=== PATIENT | male | born 1995 | race African-American/Black ===

== ENCOUNTER 2019-11-10 23:27 | Emergency (ER) | payer OTHER ==
[~2019-11-10] VITALS: Ht 188 cm; Wt 81.6 kg
[2019-11-10 23:35] VITALS: BP 145/88
--- NOTE | 2019-11-10 23:35 | NUR ---
ED Nurse Note: PT BROUGHT IN BY [facility] 67 WITH [employer] C/O TAZER IN LT UPPER CHEST. PT IS IN POLICE CUSTODY. VSS, NAD. [employer] AND [employer] AT BEDSIDE.
--- NOTE | 2019-11-10 23:38 | NUR ---
ED Nurse Note: TAZER REMOVED BY ERMD. APPLIED BANDAGE TO THE PUNCTURE WOUND.
--- NOTE | 2019-11-10 23:39 | Emergency Room Report ---
History of Present Illness General Chief Complaint: Medical Clearance Source: EMS, Law Enforcement Present Illness HPI This a 24-year-old male brought in by EMS with police escort for medical clearance. Patient had a parole violation and was being arrested. He resisted arrest and in the process was tased. He was brought in with a taser to the left upper chest area. No other complaint. Patient is not cooperative. Allergies: Uncoded Allergies: APPLES (Allergy, Unknown, 11/10/19) COVID-19 Screening Contact w/high risk pt: No Recent Travel to affected area: No Experienced COVID-19 symptoms?: No Patient History Past Medical History: see triage record, old chart reviewed Past Surgical History: none Pertinent Family History: none Social History: Reports: smoking Immunizations: other Reviewed Nursing Documentation: PMH: Agreed; PSxH: Agreed Review of Systems Eye: Denies: eye pain, blurred vision ENT: Denies: ear pain, nose congestion, throat swelling Respiratory: Denies: cough, shortness of breath Cardiovascular: Denies: chest pain, palpitations Gastrointestinal: Denies: abdominal pain, diarrhea, nausea, vomiting Musculoskeletal: Denies: back pain, joint pain Skin: Denies: rash Neurological: Denies: headache, numbness Endocrine: Denies: increased thirst, increased urine Hematologic/Lymphatic: Denies: easy bruising All Other Systems: negative except mentioned in HPI Physical Exam Vital Signs Date Time Temp Pulse Resp B/P (MAP) Pulse Ox O2 Delivery O2 Flow Rate FiO2 11/10/19 23:31 97.5 130 18 170/86 (114) 98 Room Air Vitals with tachycardia Sp02 EP Interpretation: reviewed, normal General Appearance: well appearing, no apparent distress, alert Head: normocephalic, atraumatic Eyes: bilateral eye PERRL, bilateral eye EOMI ENT: hearing grossly normal, normal pharynx Neck: full range of motion, supple, no meningismus Respiratory: chest non-tender, lungs clear, normal breath sounds, other - Left upper chest mildly deltoid area, there is a taser embedded. Cardiovascular #1: regular rate, rhythm, no murmur Gastrointestinal: normal bowel sounds, non tender, no mass, no organomegaly, no bruit, non-distended Musculoskeletal: back normal, normal range of motion, gait/station normal Psychiatric: mood/affect normal Procedures Additional Procedure Procedure Narrative Procedure: Foreign body removal indication: Foreign body Description: With traction, I pulled the taser out without any difficulty. Wound is clean and superficial. Dressing done. No complication. Medical Decision Making Diagnostic Impression: Primary Impression: Foreign body (FB) in soft tissue Additional Impression: Examination, medicolegal reason ER Course Patient here for medical clearance. Foreign body removed. Heart rate little elevated but at 110. Will discharge to police service technician. Last Vital Signs Date Time Temp Pulse Resp B/P (MAP) Pulse Ox O2 Delivery O2 Flow Rate FiO2 11/10/19 23:31 97.5 130 18 170/86 (114) 98 Room Air Status: improved Disposition: LAW ENFORCEMENT IN CUST Condition: Stable Additional Instructions: Abstain from drugs and alcohol. Follow-up with your doctor in 7 days. Return if worse. Keshav Way MD Nov 10, 2019 23:39
[2019-11-10 23:40] VITALS: BP 145/88
--- NOTE | 2019-11-10 23:40 | NUR ---
ER DISCHARGE NOTE: Patient is cleared to be discharged per ERMD, pt is aox4, on room air, with stable vital signs. [employer] was given dc instructions, pt was able to verbalize understanding, pt id band removed without complications. pt is able to ambulate with steady gait. [employer] took all belongings. pt in [employer] custody
== END 2019-11-10 23:40 ==
LOC: EDBD 23:27 → EMR 23:40
DX: M79.5 Residual foreign body in soft tissue (principal); Z91.018 Allergy to other foods; F17.200 Nicotine dependence, unspecified, uncomplicated
CPT/HCPCS: 99283